=== PATIENT | female | born 1965 | race Caucasian/White ===

== ENCOUNTER 2018-08-03 09:25 | Day surgery (SDC) | payer BC ==
[2018-08-03] MEDS: NS 1,000 ML IV (09:51)
[2018-08-03] MEDS ORDERED: LIDOCAINE 2% INJ 100 MG/5 ML SDV (FOR ANES.) As Ordered (11:02)
[2018-08-03] MEDS ORDERED: PROPOFOL 500 MG/50 ML VIAL As Ordered (11:02)
== END 2018-08-03 11:49 | disposition home or self-care (01) ==
LOC: M OPP 09:25
DX: Z12.11 Encounter for screening for malignant neoplasm of colon (principal); K64.0 First degree hemorrhoids; K57.30 Diverticulosis of large intestine without perforation or abscess without bleeding; E03.9 Hypothyroidism, unspecified; R23.3 Spontaneous ecchymoses; Z79.899 Other long term (current) drug therapy; Z90.710 Acquired absence of both cervix and uterus
CPT/HCPCS: 45378

== ENCOUNTER → 2021-08-05 | Outpatient (CLI) | payer BC ==
[~2021-08-05] MED LIST: HORMONE PELLETS SC; HYDR12CA PO; IBUP600T26 OR; NAPR375T2 PO; PARO5TAB PO; PEPT525S; PERC5TAB8; SYNT50TA PO; VICO7.5T11 PO
== END ==
LOC: M LABSMTC 09:21
PROVIDERS: ATTEND Pediatrics
DX: Z11.52 Encounter for screening for COVID-19 (principal)
CPT/HCPCS: C9803; U0003

== ENCOUNTER → 2021-12-01 | Outpatient (CLI) | payer BC | LOC: M WHC 06:37 | PROVIDERS: ATTEND Physician Assistant Medical | DX: Z12.31 Encounter for screening mammogram for malignant neoplasm of breast (principal); Z78.0 Asymptomatic menopausal state ==

== ENCOUNTER → 2022-06-09 | Outpatient (CLI) | payer BC | LOC: M WUC 11:25 | PROVIDERS: ATTEND Physician Assistant Medical | DX: M25.552 Pain in left hip (principal) ==

== ENCOUNTER → 2023-08-08 | Outpatient (CLI) | payer BC | LOC: M WHC 07:19 | PROVIDERS: ATTEND Physician Assistant Medical | DX: Z12.31 Encounter for screening mammogram for malignant neoplasm of breast (principal) ==

== ENCOUNTER → 2024-07-30 | Outpatient (CLI) | payer BC | LOC: M WHC 09:00 | PROVIDERS: ATTEND Physician Assistant Medical | DX: Z12.31 Encounter for screening mammogram for malignant neoplasm of breast (principal); N63.11 Unspecified lump in the right breast, upper outer quadrant ==

== ENCOUNTER → 2024-08-05 | Outpatient (CLI) | payer BC | LOC: M WHC 10:17 | PROVIDERS: ATTEND Physician Assistant Medical | DX: R92.8 Other abnormal and inconclusive findings on diagnostic imaging of breast (principal); N63.11 Unspecified lump in the right breast, upper outer quadrant ==

== ENCOUNTER → 2024-08-08 | Outpatient (CLI) | payer BC ==
[2024-08-08 10:49] VITALS: TEMP 98.3
[2024-08-08 12:42] VITALS: BP 122/78; O2SAT 100
== END ==
LOC: M WHCPRO 10:50
PROVIDERS: ATTEND Physician Assistant Medical
DX: R92.8 Other abnormal and inconclusive findings on diagnostic imaging of breast (principal); N63.11 Unspecified lump in the right breast, upper outer quadrant; C50.411 Malignant neoplasm of upper-outer quadrant of right female breast

== ENCOUNTER → 2024-11-27 | Outpatient (CLI) | payer BC ==
[~2024-11-27] MED LIST changes: +ANAS1TAB2 PO
== END ==
LOC: M WHC 12:59
PROVIDERS: ATTEND Internal Medicine Hematology & Oncology
DX: C50.411 Malignant neoplasm of upper-outer quadrant of right female breast (principal); Z92.3 Personal history of irradiation

== ENCOUNTER → 2024-11-28 | Outpatient (CLI) | payer BC | LOC: M ONCR 12:47 | PROVIDERS: ATTEND General Practice | DX: C50.411 Malignant neoplasm of upper-outer quadrant of right female breast (principal); Z98.890 Other specified postprocedural states; Z79.811 Long term (current) use of aromatase inhibitors; Z17.0 Estrogen receptor positive status [ER+]; Z17.21 Progesterone receptor positive status; Z17.32 Human epidermal growth factor receptor 2 negative status; Z90.710 Acquired absence of both cervix and uterus; Z90.722 Acquired absence of ovaries, bilateral; Z90.79 Acquired absence of other genital organ(s); Z87.891 Personal history of nicotine dependence; Z80.1 Family history of malignant neoplasm of trachea, bronchus and lung; Z80.52 Family history of malignant neoplasm of bladder; Z79.899 Other long term (current) drug therapy ==

== ENCOUNTER 2024-12-06 07:42 | Outpatient (RCR) | payer BC | END 2024-12-16 | LOC: M ONCR 07:42 | PROVIDERS: ATTEND General Practice | DX: Z51.0 Encounter for antineoplastic radiation therapy (principal); C50.411 Malignant neoplasm of upper-outer quadrant of right female breast ==

== ENCOUNTER 2024-12-27 11:23 | Outpatient (RCR) | payer BC | END 2025-01-15 | LOC: M ONCR 11:23 | PROVIDERS: ATTEND General Practice | DX: Z51.0 Encounter for antineoplastic radiation therapy (principal); C50.411 Malignant neoplasm of upper-outer quadrant of right female breast ==

== ENCOUNTER → 2025-07-01 | Outpatient (CLI) | payer BC ==
[~2025-07-01] MED LIST changes: +HYDR12.510 PO; -HYDR12CA PO
== END ==
LOC: M ONCR 13:46
PROVIDERS: ATTEND General Practice
DX: C50.411 Malignant neoplasm of upper-outer quadrant of right female breast (principal); R07.89 Other chest pain; Z79.811 Long term (current) use of aromatase inhibitors; Z79.899 Other long term (current) drug therapy; Z87.891 Personal history of nicotine dependence; Z92.3 Personal history of irradiation